=== PATIENT | female | born 1970 | race Caucasian/White ===

== ENCOUNTER 2023-07-15 10:01 | Observation (INO) ==
[2023-07-15] MEDS ORDERED: Lidocaine 2% PF 5 ML VIAL ONE (10:32)
[2023-07-15] MEDS ORDERED: Famotidine IV 10 MG/ML 2 ml VIAL (20 mg) ONE (10:37)
[2023-07-15] MEDS ORDERED: Tranexamic Acid 1 GM/100ML BAG 2,000 MG/200 ML BAG IV ONE (10:37)
[2023-07-15] MEDS ORDERED: Clindamycin 900 MG/50 **NS BAG 900 MG/50 ML BAG ONE (10:37)
[2023-07-15 10:57] LABS: Rapid COVID-19 Molecular Undetected (Undetected)
[2023-07-15] MEDS: Famotidine IV 10 MG/ML 2 ml VIAL (20 mg) IV ONE (11:09)
[2023-07-15] MEDS ORDERED: fentaNYL 100 mcg/2 ml 50 MCG/ML VIAL ONE (11:22)
[2023-07-15] MEDS ORDERED: ROPIVACAINE 5 MG/ML 30 ML BTL (0.5%) ONE ×2 (11:22→12:10)
[2023-07-15] MEDS ORDERED: Acetaminophen IV 1 GM/100ML 0 MG/0 ML BAG IV ONE (11:22)
[2023-07-15] MEDS ORDERED: Midazolam 5 mg/5 ml VIAL 1 mg/ml 5 ml VIAL (5 mg) ONE (11:22)
[2023-07-15] MEDS ORDERED: KETAMINE HCL 10 MG/ML 20 ml VIAL (200 MG) ONE ×2 (12:52→15:09)
[2023-07-15] MEDS ORDERED: Bupivacaine-MPF SPINAL 7.5 MG/ML - 2ML AMP ONE (12:55)
[2023-07-15] MEDS ORDERED: Glycopyrrolate IV 0.2 MG/ML 1 ML VIAL ONE (13:23)
[2023-07-15] MEDS ORDERED: fentaNYL 100 mcg/2 ml 50 MCG/ML VIAL IV PRN (14:22)
[2023-07-15] MEDS ORDERED: HYDROmorphone 1 MG/1 ML SYRINGE IV PRN (14:22)
[2023-07-15] MEDS ORDERED: Naloxone 0.4 mg VIAL 0.4 mg/ml 1 ml VIAL IV PRN (14:22)
[2023-07-15] MEDS ORDERED: Lactulose 30 ml UDC PO PRN (14:33)
[2023-07-15] MEDS ORDERED: Ondansetron 4 mg VIAL 2 MG/ML 2 ml VIAL IV PRN (14:33)
[2023-07-15] MEDS ORDERED: Magnesium Hydroxide LIQ 30 ML UDC PO PRN (14:33)
[2023-07-15] MEDS ORDERED: Ondansetron ODT 4 mg TAB 4 MG TAB PO PRN (14:33)
[2023-07-15] MEDS ORDERED: Propofol 10 MG/ML 20 ML BTL ONE (14:59)
[2023-07-15] MEDS ORDERED: Rocuronium 50 mg VIAL 10 mg/ml 5 ml VIAL (50 mg) ONE (15:08)
[2023-07-15] MEDS ORDERED: fentaNYL 250 mcg/5 ml 50 MCG/ML 5 ml VIAL (250 MCG) ONE (15:08)
[2023-07-15] MEDS: Buffered Lidocaine 1% SYRIN 1 ml INTRADERM ONE (15:22)
[2023-07-15] MEDS: Lactated Ringers 1000 ml BAG 1,000 ML IV SCH ×2 (15:22→17:53)
[2023-07-15] MEDS: Clindamycin 600 MG/D5W BAG 600 MG/50 ML BAG IV SCH (20:21)
[2023-07-15] MEDS: Magnesium Hydroxide LIQ 30 ML UDC PO SCH (20:23)
[2023-07-15] MEDS: Morphine 2 MG/ML SYRINGE IV PRN (23:58)
[2023-07-16 06:22] LABS: Hematocrit 36.9 % (35-45); Hemoglobin 12.7 g/dL (11.5-14.3); Mean Platelet Volume 7.4 fL (7.5-11.2); Platelet Count 374 10^3/uL (150-450)
[2023-07-16 06:43] LABS: Calcium 8.6 mg/dL (8.6-10.3); Creatinine, Serum 0.58 mg/dL (0.51-0.95); eGFR CKD-EPI 107.5 (>60)
[2023-07-16] MEDS: Vitamin THERAPEUTIC TAB PO SCH (09:02)
[2023-07-16 14:32] VITALS: BP 117/65
== END 2023-07-16 15:40 | disposition home or self-care (01) ==
LOC: INTOOBSV 10:01 → AA 10:01 → SSU 17:51
PROVIDERS: ADMIT Orthopaedic Surgery Adult Reconstructive Orthopaedic Surgery; ATTEND Orthopaedic Surgery Adult Reconstructive Orthopaedic Surgery